=== PATIENT | female | born 1980 | race Native Hawaiian/Other Pacific Islander ===

== ENCOUNTER 2017-05-11 08:02 | Inpatient (IN) | payer BC, OTHER ==
[2017-05-11 08:20] VITALS: BMI 28.9
[2017-05-11] MEDS ORDERED: ceFAZolin IV 1 gm in Dextrose 1 GM/50 ML BAG IVPB ONE (09:55)
[2017-05-11] MEDS ORDERED: Lactated Ringer's 1,000 ML IV SCH (10:00)
[2017-05-11] MEDS ORDERED: Oxytocin 30 UNITS in Sodium Chloride 0.9% 500 ML IV ONE (10:00)
[2017-05-11] MEDS: Lactated Ringer's 1,000 ML IV SCH ×2 (10:05→11:06)
[2017-05-11] MEDS ORDERED: ceFAZolin IV 2 gm in Dextrose 2 GM/50 ML BAG IVPB ONE (10:26)
[2017-05-11 10:42] LABS: BASO % 0.3 % (0.0-2.0); EOS % 0.3 % (0.0-4.0); HEMATOCRIT 32.8 % (34.0-47.0); LYMPH # 1.6 K/uL (1.0-4.3); LYMPH % 12.3 % (20.0-40.0); MEAN CELL VOLUME 75.9 fl (81.0-99.0); MEAN CORPUSCULAR HGB CONC 31.7 g/dL (33.0-37.0); MEAN PLATELET VOLUME 9.6 fl (7.2-11.7); MONO # 0.6 K/uL (0.0-0.8); MONO % 4.6 % (0.0-10.0); NEUT % 82.5 % (50.0-75.0); RED CELL DISTRIBUTION WIDTH 18.4 % (11.5-14.5); WHITE BLOOD COUNT 13.3 K/uL (4.8-10.8)
[2017-05-11] MEDS ORDERED: Bicitra 30 ML UD PO ONE (11:08)
[2017-05-11] MEDS ORDERED: ePHEDrine 50 mg/ml Inj ONE (11:19)
[2017-05-11] MEDS ORDERED: Morphine 1 mg/ml preservative-free Inj(Duramorph) ONE (11:20)
--- NOTE | 2017-05-11 12:54 | OBHP ---
Datetime: 05/11/2017 10:05 IP Adm Impression: Term, intrauterine IP Admit Plan: Admit to unit; Initiate Section protocol; Observation/Evaluation Admit Comment, IP Provider: 37 y/o Female, , 38.1 week IUP ([facility] c/section on 05/20/17), comes to the [facility] c/o pain which started this morning at 4am. pain is located mainly at lower back and radiat es to front, 01/31 when it gets worse, Patient denies any CTX, but admits to LOF, negative for BV. pat ient denies any fever, chills, n/v or urinary symptoms. no dyspnea or cp. PNC: Dr. Wing PNL: GBS negative, RPR, HIV,HepB negative, rubella immune PNI: No issues so far with this preganancy ecxept Hypothyroid Meds: PNV, and Thyroxin 25 Allg: Sulfa drugs (gets swellings on lips) PMH: Hypothyroidism PSH: x 1 OBGYN: 1 c/s 7 years ago SH: denies alcohol/smoking or illicit drug use FH: Denies VS: Stable 115/82, FHT 150 PE: Unremarkable + CTX , +ROM on exam , +pulling and +nitrazine A/P::37 y/o Female, , 38.1 week IUP ([facility] c/section on 05/20/17), comes to the [facility] c/o pain wh ich started this morning at 4am. + LOF - re evaluate patient - Monitor vitals, NST and FHT - will consider IVF, observe, consider admission if CTX regularly or ROM Case discussed with Dr. Uribe --- Cristi Feldman, PGY-1 10:00am Exam: +ROM -Admit patient -Initiate C/Section protocol Disussed with Dr. Uribe --- Cristi Feldman, PGY1 Addendum by Dr. Wells: I have evaluated the patient and I agree with the above Pelvic Type - PN: Adequate Extremities - PN: Normal Abdomen - PN: Normal Back - PN: Normal Breast - PN: Not Done Lungs - PN: Normal Heart - PN: Normal Thyroid - PN: Normal Neurologic - PN: Normal HEENT - PN: Normal General - PN: Normal FHR - Baseline A Provider: 150 Comments, ACOG Physical Exam: GBS negative, RPR, HIV,HepB negative, rubella immune +CTX, Admits LOF and pain +ROM on exam Pool Provider: Positive Nitrazine Provider: Positive Vital Signs Provider: Reviewed IP Indication for Induction: Not Applicable IP Chief Complaint: Uterine contractions; Suspected ruptured membranes; Maternal discomfort; e valuation NICHD Variability Prov Fetus A: Moderate 6-25bpm NICHD Accel Fetus A IP Provider: [id number] FHR Category Provider Fetus A: Category I NICHD Decel Fetus A IP Provider: None Genitourinary Exam: Normal DTRs - PN: Normal
--- NOTE | 2017-05-11 12:58 | OBDS ---
DELIVERY PERSONNEL Delivery Doctor: Dr Wells/Dr Hernández Pilot Plant Operator Helper[facility] Anesthesiologist: Dr Hendrix Resident: Dr Feldman MATERNAL INFORMATION Delivery Anesthesia: Spinal Medications in Delivery: Pitocin Estimated Blood Loss (ml): 800 Placenta Cultured: No Maternal Complications: None Provider Comments: Surgeon: Dr. Wells Mold Cleaner; Dr. Hernández Pre-operative Dx: PROM, Previous x 1, term Surgery: Repeat LTCS, BTL, resection of omental adhesions Post-op Dx: same Findings: Live male , 7lbs 1oz, 9/9, clear fluid, cephalic, nuchal cord x 1, grossly nml tub es ovaries, placenta, uterus EBL: 800mL UO: 150mL TOtal input: 1800mL Complications:none Anesthesia: Spinal by Dr. Morgan Pathology: Placenta, Bilateral tubes LABOR SUMMARY No. Babies in Womb: 1 LABOR INFORMATION Onset of Labor: pt admitted for repeat c/s MEMBRANES Membranes Rupture Method: Spontaneous Rupture of Membranes: 05/11/2017 04:30 Length of Rupture (hrs): 7.45 Amniotic Fluid Color: Clear Amniotic Fluid Amount: Scant Amniotic Fluid Odor: Normal STAGES OF LABOR Stage 3 hrs: 0 Stage 3 min: 0 CSECTION DELIVERY Primary Indication: Repeat Elective Secondary Indication: tubal ligation CSection Urgency: Elective CSection Incidence: Repeat Labor: Labor Elective: Elective CSection Incision: Lower Uterine Transverse BABY A INFORMATION Delivery Date/Time: 05/11/2017 11:57 Method of Delivery: Born in Route : No : N/A Forceps: N/A Vacuum Extraction: N/A Shoulder Dystocia : No SHOULDER DYSTOCIA BABY A Delivery Date/Time: 05/11/2017 11:57 PRESENTATION/POSITION BABY A Presentation: Cephalic Cephalic Presentation: Vertex Breech Presentation: N/A PLACENTA INFORMATION BABY A Placenta Delivery Time : 05/11/2017 11:57 Placenta Method of Delivery: Expressed Placenta Status: Delivered SCORES BABY A Heart Rate 1 min: >100 bpm Resp Effort 1 min: Good Cry Reflex Irritability 1 min: Cough or Sneeze or Pulls Away Muscle Tone 1 min: Active Motion Color 1 min: Body [place], Extremities Blue Resuscitation Effort 1 min: Tactile Stimulation SCORE 1 MIN: 9 Heart Rate 5 min: >100 bpm Resp Effort 5 min: Good Cry Reflex Irritability 5 min: Cough or Sneeze or Pulls Away Muscle Tone 5 min: Active Motion Color 5 min: Body [place], Extremities Blue Resuscitation Effort 5 min: Tactile Stimulation SCORE 5 MIN: 9 INFORMATION BABY A Gestational Age at Delivery: 38.0 Gestational Status: Term Infant Outcome : Liveborn Infant Condition : Stable Sex: Male IDENTIFICATION/MEDS BABY A ID Band Number: [id number] ID Band Location: Left Leg; Left Arm Vitamin K Given : Not Given Erythromycin Given: Not Given WEIGHT/LENGTH BABY A Birthweight (gms): 3215 Weight (lb): 7 Weight (oz): 1 CORD INFORMATION BABY A No. Cord Vessels: 3 Nuchal Cord : N/A Nuchal Cord Other: n/a True Knot: n/a Infant Cord pH Baby Venous: n/a Cord Blood Taken: Yes Banking/Donate Info: n/a Infant Suction: Mouth ASSESSMENT BABY A Infant Complications: None Physical Findings at Delivery: Within Normal Limits Infant Respirations: Appears Normal Director [facility]/ALS Called : No Care By: /[facility] nursery Transferred To: Nursery
[2017-05-11] MEDS ORDERED: Morphine 1 mg/ml preservative-free Inj(Duramorph) EPI ONE (13:00)
[2017-05-11] MEDS ORDERED: Oxycodone/Acetaminophen 5/325 mg Tab PO PRN (13:04)
[2017-05-11] MEDS ORDERED: Bisacodyl 5mg EC Tab PO PRN (13:04)
[2017-05-11] MEDS: Simethicone 80 mg Chewtab PO SCH ×2 (19:36→22:56)
[2017-05-12] MEDS: Levothyroxine 25 MCG TAB PO SCH (05:54)
[2017-05-12] MEDS: Simethicone 80 mg Chewtab PO SCH ×4 (06:02→22:13)
[2017-05-12 07:14] LABS: BASO % 0.2 % (0.0-2.0); EOS # 0.1 K/uL (0.0-0.7); EOS % 0.6 % (0.0-4.0); HEMATOCRIT 29.2 % (34.0-47.0); LYMPH # 1.4 K/uL (1.0-4.3); LYMPH % 10.5 % (20.0-40.0); MEAN CELL VOLUME 77.9 fl (81.0-99.0); MEAN CORPUSCULAR HEMOGLOBIN 24.3 pg (27.0-31.0); MEAN CORPUSCULAR HGB CONC 31.3 g/dL (33.0-37.0); MEAN PLATELET VOLUME 9.3 fl (7.2-11.7); MONO # 0.7 K/uL (0.0-0.8); MONO % 5.4 % (0.0-10.0); NEUT # 11.1 K/uL (1.8-7.0); NEUT % 83.3 % (50.0-75.0); NRBC % 0.1 % (0.0-0.0); RED CELL DISTRIBUTION WIDTH 19.1 % (11.5-14.5); WHITE BLOOD COUNT 13.3 K/uL (4.8-10.8)
--- NOTE | 2017-05-12 07:29 | OBPPN ---
Datetime: 05/12/2017 07:22 PP Pain Prov: Within normal limits PP Nausea Prov: Denies PP Flatus Prov: Yes PP BM Prov: No PP Abdomen/Uterus Prov: Normal PP Lochia Prov: Normal PP Extremities Prov: Normal PP C/S Incision Prov: Normal PP Progress Prov: Normal PP Comments Phys Exam Prov: Insision w/ dry clean bandage in place PP Impression Prov: Normal progression PP Plan Prov: Continue present management PP Progress Note Prov: POD 1 s/p Repeat c/s, BTL, doing well, breast and bottle feeding Continue current care Vital Signs Provider PP: Reviewed
[2017-05-12] MEDS: Oxycodone/Acetaminophen 5/325 mg Tab PO PRN (16:34)
[2017-05-13] MEDS: Simethicone 80 mg Chewtab PO SCH ×4 (04:00→22:14)
[2017-05-13] MEDS: Levothyroxine 25 MCG TAB PO SCH (06:26)
--- NOTE | 2017-05-13 10:34 | OBPPN ---
Datetime: 05/13/2017 10:12 PP Pain Prov: Within normal limits PP Nausea Prov: Denies PP Flatus Prov: Yes PP Breasts Prov: Normal PP Heart Prov: Normal PP Lungs Prov: Normal PP Abdomen/Uterus Prov: Normal PP Lochia Prov: Normal PP Vulva/Perineum Prov: Normal PP CVA Tenderness Prov: Normal PP Extremities Prov: Normal PP Comments Phys Exam Prov: Fundus firm under umbilicus INcision clean/dry/intact PP Impression Prov: Normal progression PP Plan Prov: Continue present management PP Progress Note Prov: Patient denies CP, no SOB, no N/V, tolerating PO diet, ambulating/voiding wel l, mild lochia, abdominal pain tolerable with meds, +flatus A/P POD #2 1. Continue Reg diet 2. Percocet/Motrin prn pain 3. Encourage ambulation/ IP PP Procedures: None Vital Signs Provider PP: Reviewed
[2017-05-13] MEDS: Oxycodone/Acetaminophen 5/325 mg Tab PO PRN (18:23)
[2017-05-14] MEDS: Simethicone 80 mg Chewtab PO SCH ×2 (05:53→09:01)
[2017-05-14] MEDS: Levothyroxine 25 MCG TAB PO SCH (06:31)
--- NOTE | 2017-05-14 10:10 | OBDCSUM ---
Datetime: 05/14/2017 08:46 Discharged to, Provider: Home Follow up at, Provider: OB Disch Instr Activity: Normal activity; May be up to bathroom; May be up for meals; May Shower Disch Instr Diet: Regular Discharge Diagnosis, Provider: Term Delivered Discharge Time: 05/14/2017 08:46 Follow up in weeks, Provider: 1 week incision check , 6 weeks vaginal check up Disch Referrals: None Disch Activity Restrictions: Minimize stair-climbing; No sexual activity; Nothing in vagina - Interc ourse, tampons, douche
--- NOTE | 2017-05-14 10:10 | OBPPN ---
Datetime: 05/14/2017 10:09 PP Pain Prov: Within normal limits PP Nausea Prov: Denies PP Flatus Prov: Yes PP BM Prov: Yes PP Breasts Prov: Normal PP Heart Prov: Normal PP Lungs Prov: Normal PP Abdomen/Uterus Prov: Normal PP Lochia Prov: Normal PP Vulva/Perineum Prov: Normal PP CVA Tenderness Prov: Normal PP Extremities Prov: Normal PP C/S Incision Prov: Normal PP Progress Prov: Normal PP Impression Prov: Normal progression PP Plan Prov: Discharge PP Progress Note Prov: A; S/P C/S day 3 Anemia - asymptomatic PLAN: discharge home and follow up in 1-2w Vital Signs Provider PP: Reviewed; Within Normal Limits
[2017-05-14 16:50] VITALS: BP 111/87; PULSE 83; RESP 20; TEMP 97.8; O2SAT 3
--- NOTE | 2017-05-14 18:12 | OP ---
PROCEDURE DATE: 05/11/2017 SURGEON: Diandra Wells MD. FULL STACK PYTHON DEVELOPER: Dr. Sanchez. PREOPERATIVE DIAGNOSES: Previous section x1, rupture of membranes in early labor. PROCEDURE: Repeat lateral transverse section and bilateral tubal ligation. POSTOPERATIVE DIAGNOSES: Previous section x1, rupture of membranes in early labor. FINDINGS: Live male infant; 7 pounds 1 ounce; 9 and 9 Apgars; cephalic presentation; clear fluid; grossly normal tubes, ovaries, placenta, uterus. TYPE OF ANESTHESIA: Spinal. ANESTHESIA ADMINISTERED BY: Angelica Morgan M.D. ESTIMATED BLOOD LOSS: 800 mL. TOTAL FLUID INPUT: 1800 mL. URINE OUTPUT: 150 mL. COMPLICATIONS: None. CONDITION: Stable. PATHOLOGY SPECIMEN: Cord blood. INDICATION: This is a 37-year-old G2, P1-0-0-1 at 39 plus weeks in early labor with ruptured membranes evident on exam in labor and delivery. Patient with a previous and desired no child labor, but to proceed with repeat low transverse . Patient also desired for a tubal ligation, permanent sterilization procedure. Risks and benefits of repeat and permanent sterilization were discussed with the patient. Patient signed informed consent and informed consent for sterilization procedure. DESCRIPTION OF PROCEDURE: Patient was taken to the OR. Ancef was given preoperatively. SCDs were placed bilaterally. Patient prepped and draped in the normal sterile fashion in dorsal supine position with a leftward tilt. A Pfannenstiel skin incision was made through the previous incision with a scalpel and carried through to the underlying layer of fascia with a scalpel and the Bovie. Fascia was incised in the midline and the incision was extended laterally with the Bovie. We used Jamie clamps to tent up the inferior aspect of this incision, which was dissected off underlying pyramidalis muscles with the Bovie. In a similar fashion, we dissected the superior aspect of this incision off of the rectus abdominis muscles with the Jamie clamps and the Bovie. We the muscles bluntly at the midline. The peritoneum was identified, entered bluntly. The incision was extended superiorly and inferiorly for good visualization of all underlying organs. The bladder blade was inserted. The vesicouterine peritoneum was identified, grabbed with pickups, and the bladder flap was created with Metzenbaum scissors. Lower uterine segment was incised in a transverse fashion. The uterine cavity was entered. The incision was extended manually. The was delivered in cephalic presentation atraumatically followed by shoulders and rest of the infant atraumatically. Fluid was noted to be clear. Mouth and nose were suctioned. Cord was clamped and cut. The was handed off to the awaiting pediatric team. Placenta was extracted manually. The uterus was exteriorized, cleared off all clots. Uterine incision was repaired with an 0-Vicryl stitch and the second imbricating layer was repaired with a 0-Monocryl stitch. We then turned our attention to the bilateral tubes. For the surgery of sterilization, we did a salpingectomy; clamping with a Lisa clamp across the fimbria and most of the isthmus, we resected with Bovie and then with a stitch and free tie, we were able to tamponade. We then reinspected the hysterotomy site, it appeared to be hemostatic. The uterus was returned to the abdomen. We cleaned the gutters off all clots. We again reinspected the resected tubes and they were hemostatic. We closed the peritoneum with 2-0 Monocryl and the muscle with the same stitch. The fascia was closed with 0-Vicryl stitch. Subcutaneous bleeders were cauterized with the Bovie. The skin was closed with a 4-0 Monocryl. Patient was taken to the recovery room in stable condition. There were no other complications. Diandra Wells MD
== END 2017-05-14 11:35 | disposition home or self-care (01) | DRG 766 ==
LOC: H.EROB2 08:02 → H.L&D 09:51 → H.OB/GYN 17:22
PROVIDERS: ADMIT Obstetrics & Gynecology Gynecology; ATTEND Obstetrics & Gynecology Gynecology
PROC: 10D00Z1 Extraction of Products of Conception, Low, Open Approach (ICD-10-PCS; principal; 2017-05-11)
PROC: 0UB70ZZ Excision of Bilateral Fallopian Tubes, Open Approach (ICD-10-PCS; 2017-05-11)
PROC: 4A1HXCZ Monitoring of Products of Conception, Cardiac Rate, External Approach (ICD-10-PCS; 2017-05-11)
DX: O34.211 Maternal care for low transverse scar from previous cesarean delivery (principal); E03.9 Hypothyroidism, unspecified; O99.284 Endocrine, nutritional and metabolic diseases complicating childbirth; K66.0 Peritoneal adhesions (postprocedural) (postinfection); N85.8 Other specified noninflammatory disorders of uterus; O69.81X0 Labor and delivery complicated by cord around neck, without compression, not applicable or unspecified; O42.02 Full-term premature rupture of membranes, onset of labor within 24 hours of rupture; O99.02 Anemia complicating childbirth; D64.9 Anemia, unspecified; Z3A.38 38 weeks gestation of pregnancy; Z37.0 Single live birth